=== PATIENT | female | born 1950 | race Caucasian/White ===

== ENCOUNTER 2019-03-23 09:02 | Day surgery (SDC) | payer MEDICARE ==
[~2019-03-23] VITALS: Ht 165.1 cm; Wt 81.9 kg
[~2019-03-23 09:02] MED LIST: Alph-E-Mixed400 UNIT; B Complex1 EAC2; B-121000 MC2; CRANBERRY250 MG; Elemental Calc600 MG; Estradiol1 MG; FLAX; KRILL OIL500 MG; MELATONIN5 M1 PO; Multiple Vitam1 EAC1; Ocuvite Preser1 EACH; VITAMIN D31000 UNIT; Vitamin C100 M1
--- NOTE | 2019-03-23 10:29 | NUR ---
03/23/19 Viv9 Brielle Tejada CASE WAS COMPLETE AND SCOPE WAS OUT, WASTED PROPOFOL AND DR REALIZED HE HAD NOT GOTTEN RANDOM COLON BX'S SO PROCEDURE WAS RESTARTED AND MORE PROPOFOL WAS DRAWN UP.
== END 2019-03-23 10:58 | disposition home or self-care (01) ==
LOC: ORSCSDS 09:02
PROVIDERS: Internal Medicine Gastroenterology
PROC: 0D5H8ZZ Destruction of Cecum, Via Natural or Artificial Opening Endoscopic (ICD-10-PCS; principal; 2019-03-23 10:15)
PROC: 0DBK8ZX Excision of Ascending Colon, Via Natural or Artificial Opening Endoscopic, Diagnostic (ICD-10-PCS; principal; 2019-03-23 10:15)
PROC: 0DBH8ZX Excision of Cecum, Via Natural or Artificial Opening Endoscopic, Diagnostic (ICD-10-PCS; principal; 2019-03-23 10:15)
DX: Z12.11 Encounter for screening for malignant neoplasm of colon (principal); Z86.010 Personal history of colon polyps; D12.0 Benign neoplasm of cecum; D12.2 Benign neoplasm of ascending colon; K63.5 Polyp of colon; K55.20 Angiodysplasia of colon without hemorrhage; K57.30 Diverticulosis of large intestine without perforation or abscess without bleeding; K64.8 Other hemorrhoids; K21.9 Gastro-esophageal reflux disease without esophagitis; J45.909 Unspecified asthma, uncomplicated
CPT/HCPCS: 88305; J2704; J7120

== ENCOUNTER 2021-04-14 12:22 | Emergency (ER) | payer MEDICARE, OTHER ==
[~2021-04-14] VITALS: Ht 165.1 cm; Wt 83.5 kg
== END 2021-04-14 15:10 | disposition home or self-care (01) ==
LOC: ER 12:22
DX: S01.112A Laceration without foreign body of left eyelid and periocular area, initial encounter (principal); M25.551 Pain in right hip; M25.561 Pain in right knee; Z88.2 Allergy status to sulfonamides; Z88.8 Allergy status to other drugs, medicaments and biological substances; Z79.899 Other long term (current) drug therapy; W01.198A Fall on same level from slipping, tripping and stumbling with subsequent striking against other object, initial encounter; Y93.89 Activity, other specified
CPT/HCPCS: 12011; 29505; 73502; 73562-RT; 99283-25; A9270

== ENCOUNTER 2023-09-15 11:35 | Day surgery (SDC) | payer MEDICARE, OTHER ==
[~2023-09-15] VITALS: Ht 165.1 cm; Wt 87.5 kg
[~2023-09-15 11:35] MED LIST changes: +Aspir 8181 MG PO; +Co Q-1010 MG; +DHEA; -Estradiol1 MG; +Estradiol1 MG PO; +GARLIC200 MG; +IRON18 MG; +SYNTHROID50 MC1 PO
[2023-09-15] MEDS ORDERED: SPIR25 PO (11:41)
[2023-09-15] MEDS ORDERED: FOLIC ACID0.4 MG (11:42)
[2023-09-15] MEDS ORDERED: Vitamin B-Comp1 EACH (11:42)
[2023-09-15] MEDS ORDERED: CENTRUM SILVER1 EAC2 (11:42)
[2023-09-15] MEDS ORDERED: B-12500 MC2 (11:42)
[2023-09-15] MEDS ORDERED: CO Q-10100 MG (11:42)
[2023-09-15] MEDS ORDERED: Calcium Carbon500 MG (11:43)
[2023-09-15] MEDS ORDERED: ZINC15 (11:43)
[2023-09-15] MEDS ORDERED: MELA3 PO (11:43)
[2023-09-15] MEDS ORDERED: Vitamin D1000 UNI1 (11:43)
[2023-09-15] MEDS ORDERED: CODACE30 (11:44)
[2023-09-15] MEDS ORDERED: IRON18 MG (11:44)
[2023-09-15 13:59] VITALS: BP 123/64
== END 2023-09-15 14:01 | disposition home or self-care (01) ==
LOC: ORSCSDS 11:35
PROVIDERS: Internal Medicine Gastroenterology
PROC: 0DBL8ZX Excision of Transverse Colon, Via Natural or Artificial Opening Endoscopic, Diagnostic (ICD-10-PCS; principal; 2023-09-15 13:00)
PROC: 3E0H8KZ Introduction of Other Diagnostic Substance into Lower GI, Via Natural or Artificial Opening Endoscopic (ICD-10-PCS; principal; 2023-09-15 13:00)
PROC: 0D757ZZ Dilation of Esophagus, Via Natural or Artificial Opening (ICD-10-PCS; principal; 2023-09-15 13:00)
PROC: 0DJ08ZZ Inspection of Upper Intestinal Tract, Via Natural or Artificial Opening Endoscopic (ICD-10-PCS; principal; 2023-09-15 13:00)
PROC: 0DBH8ZX Excision of Cecum, Via Natural or Artificial Opening Endoscopic, Diagnostic (ICD-10-PCS; principal; 2023-09-15 13:00)
DX: R13.10 Dysphagia, unspecified (principal); Z86.010 Personal history of colon polyps; K21.9 Gastro-esophageal reflux disease without esophagitis; D12.0 Benign neoplasm of cecum; K63.5 Polyp of colon; K22.2 Esophageal obstruction; K57.30 Diverticulosis of large intestine without perforation or abscess without bleeding; I10 Essential (primary) hypertension; Z79.899 Other long term (current) drug therapy; E66.9 Obesity, unspecified; Z68.32 Body mass index [BMI] 32.0-32.9, adult
CPT/HCPCS: 88305; J2001; J2704; J7120